=== PATIENT | male | born 1965 | race African-American/Black ===

== ENCOUNTER 2018-03-20 17:22 | Emergency (ER) | payer OTHER ==
[2018-03-20 17:51] VITALS: BP 176/98; PULSE 79; TEMP 98; BMI 37.1
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
== END 2018-03-20 19:27 | disposition home or self-care (01) ==
LOC: JERFT 17:22
DX: M54.5 Low back pain (principal); V89.2XXA Person injured in unspecified motor-vehicle accident, traffic, initial encounter; Y93.89 Activity, other specified; Y92.410 Unspecified street and highway as the place of occurrence of the external cause; E11.9 Type 2 diabetes mellitus without complications; I10 Essential (primary) hypertension; E78.5 Hyperlipidemia, unspecified
CPT/HCPCS: 72100-TC-FY; 73562-TC-RT-FY; 99281-25